=== PATIENT | male | born 1970 | race Two or more races ===

== ENCOUNTER 2016-03-23 07:43 | Outpatient (CLI) | payer BC ==
[2016-03-23 08:23] LABS: CHOLESTEROL 155 mg/dL (<200); HDL CHOLESTEROL 41 mg/dL (40-60); LDL 96 mg/dL (0-99); TRIGLYCERIDES 179 mg/dL (30-150)
== END 2016-03-23 23:59 | disposition home or self-care (01) ==
LOC: LAB 07:43
DX: E78.5 Hyperlipidemia, unspecified (principal)
CPT/HCPCS: 36415; 80061-TC

== ENCOUNTER 2016-09-20 08:05 | Outpatient (CLI) | payer BC ==
[2016-09-20 09:44] LABS: BILIRUBIN,TOTAL 0.7 mg/dL (0.2-1.0); CALCIUM, SERUM 8.3 mg/dL (8.5-10.1); CREATININE 0.8 mg/dL (0.6-1.3); POTASSIUM 4.3 mmol/L (3.5-5.1); TOTAL PROTEIN, SERUM 7.5 g/dL (6.4-8.2)
== END 2016-09-20 23:59 | disposition home or self-care (01) ==
LOC: LAB 08:05
DX: E78.5 Hyperlipidemia, unspecified (principal); Z79.899 Other long term (current) drug therapy
CPT/HCPCS: 36415; 80053-TC; 80061-TC

== ENCOUNTER → 2017-01-05 | Outpatient (CLI) | payer BC ==
[2017-01-05 10:34] LABS: ALBUMIN 3.9 g/dL (3.4-5.0); BILIRUBIN,TOTAL 0.6 mg/dL (0.2-1.0); CALCIUM, SERUM 9.1 mg/dL (8.5-10.1); CREATININE 0.9 mg/dL (0.6-1.3); POTASSIUM 4.6 mmol/L (3.5-5.1); TOTAL PROTEIN, SERUM 7.6 g/dL (6.4-8.2)
== END ==
LOC: LAB 09:56
PROVIDERS: ATTEND Legal Medicine
DX: E78.5 Hyperlipidemia, unspecified (principal)
CPT/HCPCS: 36415; 80053-TC; 80061-TC

== ENCOUNTER 2018-06-11 08:54 | Outpatient (CLI) | payer BC ==
[2018-06-11 09:38] LABS: BASOPHILS # (AUTO) 0.1 /CMM (0.0-0.2); HEMATOCRIT 47 % (39-51); HEMOGLOBIN 16.4 g/dL (13.5-17.5); LYMPHOCYTES % (AUTO) 31.3 % (20.0-44.0); MEAN CORPUSCULAR HGB CONC 35 g/dl (31.0-36.0); MEAN CORPUSCULAR VOLUME 92 fL (80-96); MONOCYTES # (AUTO) 0.5 /CMM (0.1-1.30); MONOCYTES % (AUTO) 7.8 % (2.0-12.0); NEUTROPHILS # (AUTO) 3.8 /CMM (1.8-8.9); NEUTROPHILS % (AUTO) 58.9 % (43.0-81.0); PLATELET COUNT (AUTO) 252 /CMM (150-450); RED BLOOD CELL COUNT(AUTO) 5.12 MIL/uL (4.5-6.0); WHITE BLOOD COUNT (AUTO) 6.5 K/uL (4.3-11.0)
[2018-06-11 09:47] LABS: APPEARANCE,URINE CLEAR (CLEAR); BILIRUBIN,URINE NEGATIVE (NEGATIVE); BLOOD, URINE NEGATIVE Ery/uL (NEGATIVE); COLOR,URINE DARK YELLO (YELLOW); KETONES,URINE NEGATIVE (NEGATIVE); LEUKOCYTE ESTERASE ,URINE NEGATIVE (NEGATIVE); NITRITE, URINE NEGATIVE (NEGATIVE); PROTEIN,URINE NEGATIVE (NEGATIVE); UGLUCOSE NEGATIVE (NEGATIVE); UROBILINOGEN,URINE 0.2 EU/dL (0.2)
[2018-06-11 09:51] LABS: ALBUMIN 4.1 g/dL (3.4-5.0); BILIRUBIN,TOTAL 0.8 mg/dL (0.2-1.0); CALCIUM, SERUM 8.8 mg/dL (8.5-10.1); CREATININE 0.9 mg/dL (0.6-1.3); POTASSIUM 4.3 mmol/L (3.5-5.1); TOTAL PROTEIN, SERUM 7.8 g/dL (6.4-8.2)
[2018-06-11 10:06] LABS: PROSTATE SPECIFIC ANTIGEN SCR 0.37 ng/mL (0.00-4.00); THYROID STIMULATING HORMONE 2.183 uIU/mL (0.358-3.74)
[2018-06-11 10:48] LABS: OCCULT BLOOD STOOL NEGATIVE (NEGATIVE)
[2018-06-12 05:12] LABS: T3, FREE 3.5 pg/mL (2.0-4.4)
[2018-06-12 11:09] LABS: RUBELLA ANTIBODIES, IGG >33.00 index (Immune >0.99)
[2018-06-12 14:11] LABS: *MUMPS AB (IGG) 23.2 AU/mL (Immune >10.9); *RUBEOLA AB (IGG) <25.0 AU/mL (Immune >29.9)
== END 2018-06-11 23:59 | disposition home or self-care (01) ==
LOC: LAB 08:54
DX: E78.5 Hyperlipidemia, unspecified (principal); K21.9 Gastro-esophageal reflux disease without esophagitis; R53.81 Other malaise; R53.83 Other fatigue; M79.10 Myalgia, unspecified site
CPT/HCPCS: 36415; 80053-TC; 80061-TC; 81000-TC; 82272-TC; 84153-TC; 84402; 84403; 84439-TC; 84443-TC; 84481; 85025-TC; 86735; 86762; 86765

== ENCOUNTER 2018-07-15 10:39 | Outpatient (CLI) | payer BC | END 2018-07-15 23:59 | disposition home or self-care (01) | LOC: RAD 10:39 | DX: R05 Cough (principal) | CPT/HCPCS: 71045-TC ==

== ENCOUNTER 2018-10-09 15:26 | Outpatient (CLI) | payer BC ==
[2018-10-09 15:52] LABS: BASOPHILS # (AUTO) 0.1 /CMM (0.0-0.2); BASOPHILS % (AUTO) 0.8 % (0.0-2.0); EOSINOPHILS % (AUTO) 1.4 % (0.0-6.0); HEMATOCRIT 44 % (39-51); HEMOGLOBIN 15.1 g/dL (13.5-17.5); LYMPHOCYTES # (AUTO) 2.5 /CMM (0.8-4.8); MEAN CORPUSCULAR HGB CONC 35 g/dl (31.0-36.0); MEAN CORPUSCULAR VOLUME 93 fL (80-96); MONOCYTES # (AUTO) 0.6 /CMM (0.1-1.30); MONOCYTES % (AUTO) 7.6 % (2.0-12.0); NEUTROPHILS # (AUTO) 5.2 /CMM (1.8-8.9); NEUTROPHILS % (AUTO) 61.2 % (43.0-81.0); PLATELET COUNT (AUTO) 254 /CMM (150-450); WHITE BLOOD COUNT (AUTO) 8.5 K/uL (4.3-11.0)
[2018-10-09 16:08] LABS: ALBUMIN 3.8 g/dL (3.4-5.0); BILIRUBIN,TOTAL 0.3 mg/dL (0.2-1.0); CALCIUM, SERUM 8.5 mg/dL (8.5-10.1); CREATININE 0.9 mg/dL (0.6-1.3); POTASSIUM 4.2 mmol/L (3.5-5.1); TOTAL PROTEIN, SERUM 7.1 g/dL (6.4-8.2)
[2018-10-09 16:19] LABS: PROSTATE SPECIFIC ANTIGEN SCR 0.33 ng/mL (0.00-4.00)
== END 2018-10-09 23:59 | disposition home or self-care (01) ==
LOC: LAB 15:26
PROVIDERS: ATTEND Family Medicine
DX: R73.9 Hyperglycemia, unspecified (principal); R35.0 Frequency of micturition
CPT/HCPCS: 36415; 80053-TC; 84153-TC; 85025-TC

== ENCOUNTER 2018-10-31 10:29 | Outpatient (CLI) | payer BC | END 2018-10-31 23:59 | disposition home or self-care (01) | LOC: US 10:29 | PROVIDERS: ATTEND Family Medicine | DX: N40.0 Benign prostatic hyperplasia without lower urinary tract symptoms (principal) | CPT/HCPCS: 76870-TC ==